=== PATIENT | female | born 1970 | race Two or more races ===

== ENCOUNTER 2017-06-25 18:58 | Emergency (ER) | payer OTHER ==
[2017-06-25 19:05] VITALS: BP 133/69
[2017-06-25] MEDS ORDERED: Albuterol 2.5 MG/3 ML NEB.SOL* (0.083%) INH ONE (19:44)
--- NOTE | 2017-06-25 20:10 | RAD ---
INDICATION: Cough x3 weeks COMPARISON: Chest x-ray dated October 26, 2011 TECHNIQUE: PA and lateral views of the chest were obtained. FINDINGS: The heart and mediastinum are normal in size and contour. The lungs are grossly clear. There is no evidence of large pleural effusion. Visualized bones are normal for the patient's age. There is no radiographic evidence of free air beneath the diaphragm IMPRESSION: No radiographic evidence of acute cardiopulmonary disease.
--- NOTE | 2017-06-25 20:34 | UC ---
Respiratory Complaint HPI - HPI Summary HPI Summary: Patient presents with three week onset cough, with previous exposure to child with respiratory illness. She complains of persistent coughing and states that is is getting so bad that she can stop and at night is the worse. She complains of fatigue and malaise. Denies chest pain, fever, or chills/ - History of Current Complaint Chief Complaint: UCRespiratory Stated Complaint: COUGH Time Seen by Provider: 06/25/17 19:43 Hx Obtained From: Patient Hx Last Menstrual Period: 05/30/17 Onset/Duration: Gradual Onset, Lasting Weeks Timing: Constant Severity Initially: Moderate Severity Currently: Moderate Character: Cough: Nonproductive Aggravating Factors: Exertion, Deep Breaths, Recumbent Position Alleviating Factors: Upright Position, Spontaneous Resolution Associated Signs And Symptoms: Positive: URI - Risk Factors Pulmonary Embolism Risk Factors: Negative Cardiac Risk Factors: Negative Pseudomonas Risk Factors: Negative Tuberculosis Risk Factors: Negative - Allergies/Home Medications Allergies/Adverse Reactions: Allergies Allergy/AdvReac Type Severity Reaction Status Date / Time No Known Allergies Allergy Verified 06/25/17 19:06 PMH/Surg Hx/FS Hx/Imm Hx Previously Healthy: Yes - Surgical History Surgical History: Yes Surgery Procedure, Year, and Place: ; procedure;. - Family History Known Family History: Positive: Hypertension - Social History Occupation: Employed Full-time Lives: With Family Alcohol Use: None Substance Use Type: None Smoking Status (MU): Never Smoked Tobacco Review of Systems Constitutional: Fatigue Respiratory: Cough All Other Systems Reviewed And Are Negative: Yes Physical Exam Triage Information Reviewed: Yes Appearance: Ill-Appearing Vital Signs: Initial Vital Signs Temp 96.8 F 06/25/17 19:03 Pulse 83 06/25/17 19:03 Resp 12 06/25/17 19:03 BP 133/69 06/25/17 19:03 Pulse Ox 100 06/25/17 19:03 Vital Signs Reviewed: Yes Eye Exam: Normal ENT Exam: Normal Neck exam: Normal Respiratory: Positive: Rhonchi, Wheezing Cardiovascular Exam: Normal Abdominal Exam: Normal Musculoskeletal Exam: Normal Skin Exam: Normal UC Diagnostic Evaluation - Laboratory O2 Sat by Pulse Oximetry: 100 Respiratory Course/Dx - Course Course Of Treatment: Patient presents with three week onset cough, chest xray negative, albuterol neb treatment given with some relief. She was RX doxycycliine, albuterol and medrol dose mani and advise to follow up in two days. - Differential Dx/Diagnosis Differential Diagnosis/HQI/PQRI: Bronchitis Provider Diagnoses: bronchitis Discharge - Discharge Plan Condition: Stable Disposition: HOME Prescriptions: Albuterol HFA INHALER* [Ventolin HFA Inhaler*] 1 puff INH Q4H PRN #1 mdi PRN Reason: coughing DOXYcycline CAP(*) [DOXYcycline 100MG CAP(*)] 100 mg PO BID #20 cap Methylprednisolone [Medrol Dosepak 4 MG*] 0 mg PO .SEE MANI INSTRUCTION #1 tab Patient Education Materials: Acute Bronchitis (ED) Referrals: Mark Stuart MD [Primary Care Provider] -
== END 2017-06-25 20:38 | disposition home or self-care (01) ==
LOC: UCEAST 18:58
DX: J40 Bronchitis, not specified as acute or chronic (principal)
CPT/HCPCS: 71020; 99212; G0463